=== PATIENT | male | born 1990 ===

== ENCOUNTER 2018-07-07 21:16 | Emergency (ER) | payer SELFPAY ==
[2018-07-07 21:49] VITALS: BP 145/88; RESP 17; TEMP 98.3; O2SAT 98
[2018-07-07] MEDS ORDERED: Sodium Chloride 0.9% 1,000 ML IV STA (22:59)
[2018-07-08 00:25] LABS: BASO # 0.1 K/uL (0.0-0.2); BASO % 0.7 % (0.0-2.0); EOS % 0.5 % (0.0-4.0); HEMOGLOBIN 15.2 g/dL (12.0-18.0); LYMPH # 2.1 K/uL (1.0-4.3); LYMPH % 26.3 % (20.0-40.0); MEAN CELL VOLUME 87.1 fl (80.0-94.0); MEAN CORPUSCULAR HEMOGLOBIN 29.8 pg (27.0-31.0); MEAN CORPUSCULAR HGB CONC 34.2 g/dL (33.0-37.0); MEAN PLATELET VOLUME 8.4 fl (7.2-11.7); MONO # 0.6 K/uL (0.0-0.8); MONO % 6.9 % (0.0-10.0); NEUT # 5.3 K/uL (1.8-7.0); NEUT % 65.6 % (50.0-75.0); RBC 5.1 Mil/uL (4.40-5.90); RED CELL DISTRIBUTION WIDTH 13.6 % (11.5-14.5)
[2018-07-08 00:36] LABS: ALB/GLOB RATIO 1.5 (1.0-2.1); ALBUMIN 4.7 g/dL (3.5-5.0); ALT/SGPT 34 U/L (21-72); AST/SGOT 29 U/L (17-59); BLOOD UREA NITROGEN 12 mg/dl (9-20); CALCIUM 9.5 mg/dL (8.4-10.2); GFR NON-AFRICAN AMERICAN > 60
[2018-07-08 03:33] VITALS: PULSE 79
--- NOTE | 2018-07-08 03:33 | ED PDOC ---
HPI: General Adult Time Seen by Provider: 07/07/18 22:26 Chief Complaint (Nursing): Dizziness/Lightheaded History Per: Patient Additional Complaint(s): Pt. states he woke up this morning feeling dizzy which he describes as the room spinning. Reports shortly after he developed L sided chest pain which resolved after a few minutes and has not returned since. Dizziness has improved but is still present. Denies headache, head injury, fever, SOB, hemoptysis, trauma, cough. Past Medical History Reviewed: Historical Data, Nursing Documentation, Vital Signs Vital Signs: Last Vital Signs Temp 98.3 F 07/07/18 21:45 Pulse 89 07/07/18 21:45 Resp 17 07/07/18 21:45 BP 145/88 07/07/18 21:45 Pulse Ox 98 07/07/18 21:45 - Surgical History Surgical History: No Surg Hx - Family History Family History: States: No Known Family Hx - Home Medications Home Medications: Ambulatory Orders Medication Instructions Recorded Meclizine HCl 50 mg PO Q6 PRN #10 tab.chew 07/08/18 - Allergies Allergies/Adverse Reactions: Allergies Allergy/AdvReac Type Severity Reaction Status Date / Time No Known Allergies Allergy Verified 07/07/18 21:49 Review of Systems ROS Statement: Except As Marked, All Systems Reviewed And Found Negative Cardiovascular: Positive for: Chest Pain Neurological: Positive for: Dizziness Physical Exam - Physical Exam Appears: Positive for: Well, Non-toxic, No Acute Distress Head Exam: Positive for: ATRAUMATIC, NORMAL INSPECTION, NORMOCEPHALIC Skin: Positive for: Normal Color, Warm. Negative for: Rash Eye Exam: Positive for: Normal appearance, EOMI, PERRL. Negative for: Nystagmus ENT: Positive for: Normal ENT Inspection Neck: Positive for: Supple Cardiovascular/Chest: Positive for: Regular Rate, Rhythm. Negative for: Murmur, Tachycardia Respiratory: Positive for: Normal Breath Sounds. Negative for: Respiratory Distress Gastrointestinal/Abdominal: Positive for: Soft. Negative for: Tenderness Neurological/Psych: Positive for: Awake, Alert, Oriented (x3), Gait (steady, unassisted). Negative for: Facial Droop - Laboratory Results Result Diagrams: 07/07/18 23:49 07/07/18 23:49 Lab Results: Troponin I < 0.0120 ng/mL (0.00-0.120) 07/07/18 23:49 Total Bilirubin 0.5 mg/dl (0.2-1.3) 07/07/18 23:49 AST 29 U/L (17-59) 07/07/18 23:49 ALT 34 U/L (21-72) 07/07/18 23:49 Alkaline Phosphatase 66 U/L (38-126) 07/07/18 23:49 Total Protein 7.8 G/DL (6.3-8.2) 07/07/18 23:49 Albumin 4.7 g/dL (3.5-5.0) 07/07/18 23:49 Globulin 3.1 gm/dL (2.2-3.9) 07/07/18 23:49 Albumin/Globulin Ratio 1.5 (1.0-2.1) 07/07/18 23:49 - ECG ECG: Positive for: Interpreted By Me ECG Rhythm: Positive for: Sinus Rhythm. Negative for: ST/T Changes Rate: 79 O2 Sat by Pulse Oximetry: 98 - Radiology X-Ray: Interpreted by Me (CXR) X-Ray Interpretation: No Acute Disease - Progress Re-evaluation Time: 02:00 (Reports complete relief of dizziness. Chest pain has not returned. ) Condition: Re-examined, Improved Disposition - Clinical Impression Clinical Impression: Dizziness - Patient ED Disposition Is Patient to be Admitted: No - Disposition Referrals: [facility] [Outside] Disposition: Routine/Home Disposition Time: 03:00 Condition: STABLE Additional Instructions: ISAC HARRIS, thank you for letting us take care of you today. Your provider was Saul Davila MD and you were treated for DIZZINESS. The emergency medical care you received today was directed at your acute symptoms. If you were prescribed any medication, please fill it and take as directed. It may take several days for your symptoms to resolve. Return to the Emergency Department if your symptoms worsen, do not improve, or if you have any other problems. Please contact your doctor or call one of the physicians/clinics you have been referred to that are listed on the Patient Visit Information form that is included in your discharge packet. Bring any paperwork you were given at discharge with you along with any medications you are taking to your follow up visit. Our treatment cannot replace ongoing medical care by a primary care provider outside of the emergency department. Thank you for allowing the [facility] hospital team to be part of your care today. If you had an X-Ray or CT scan: A Radiologist will review the ED reading if any change in treatment is needed we will contact you. If you had a blood, urine, or wound culture: It will take several days for the results, if any change in treatment is needed we will contact you. If you had an STI test: It will take 48 hours for the results. Please call after 1 week if you have not heard back. Prescriptions: Meclizine HCl 50 mg PO Q6 PRN #10 tab.chew PRN Reason: Dizziness Instructions: Vertigo (a Type of Dizziness) (DC) Print Language: YORUBA
--- NOTE | 2018-07-08 09:16 | RAD ---
Date of service: 07/07/2018 HISTORY: chest pain COMPARISON: No prior. TECHNIQUE: 1 view obtained. FINDINGS: LUNGS: No active pulmonary disease. PLEURA: No significant pleural effusion identified, no pneumothorax apparent. CARDIOVASCULAR: No aortic atherosclerotic calcification present. Normal cardiac size. No pulmonary vascular congestion. OSSEOUS STRUCTURES: No significant abnormalities. VISUALIZED UPPER ABDOMEN: Normal. OTHER FINDINGS: None. IMPRESSION: No active disease.
== END 2018-07-08 03:55 | disposition home or self-care (01) ==
LOC: H.ER 21:16
DX: R42 Dizziness and giddiness (principal)
CPT/HCPCS: 71045; 80053; 84484; 85025; 96360; 99284; J7030